=== PATIENT | female | born 1940 | race Caucasian/White ===

== ENCOUNTER 2018-01-31 14:08 | Outpatient (CLI) | payer MEDICARE ==
--- NOTE | 2018-01-31 15:45 | RAD ---
TWO VIEW CHEST: 01/31/18 COMPARISON: 11/18/12 CLINICAL INDICATION: COPD. FINDINGS: The cardiac silhouette is enlarged. There is a subtle density overlying the cardiac silhouette at the left lower chest on the frontal view not well depicted on the lateral projection, nonspecific. There is otherwise, no lobar consolidation or discrete pneumothorax identified. Mild thoracic kyphosis see n. IMPRESSION: 1. Enlarged cardiac silhouette. 2. Nonspecific density overlying the left lower chest on the frontal view. This could relate to body wall calcification versus extrinsic artifact. A well defined density is not seen on the lateral projection. POS: [facility]
== END 2018-01-31 14:09 | disposition home or self-care (01) ==
LOC: RAD-FRANK 14:08
PROVIDERS: ATTEND Nurse Practitioner Family
DX: J20.9 Acute bronchitis, unspecified (principal); J44.0 Chronic obstructive pulmonary disease with (acute) lower respiratory infection
CPT/HCPCS: 71046

== ENCOUNTER 2018-10-07 08:06 | Inpatient (IN) | payer MEDICARE ==
[2018-10-07] MEDS ORDERED: Famotidine/PF 20 mg/2ml Vial ONE (08:20)
[2018-10-07 09:08] LABS: #Eosinphils 0.1 thou/uL (0.0-0.7); #Lymphocytes 1.4 thou/uL (1.20-3.40); #Monocytes 0.2 thou/uL (0.11-0.59); #Neutrophils 6.8 thou/uL (1.40-6.50); %Basophils 0.4 % (0.0-1.0); %Eosinophils 0.8 % (0.0-10.0); %Lymphocytes 16.6 % (21.0-51.0); %Monocytes 2.1 % (0.0-10.0); %Neutrophils 80.2 % (42.0-75.0); Hemoglobin 14.3 g/dL (12.0-16.0); Mean Corpuscular HGB CONC 33.1 g/dL (32.0-36.0); Mean Corpuscular Hemoglobin 32.6 pg (27.0-31.0); Mean Corpuscular Volume 98.4 fL (78.0-98.0); Mean Platelet Volume 7.2 fL (7.4-10.4); Platelet Count 334 thou/uL (130-400); RBC Distribution Width 11.7 % (11.5-14.5); Red Blood Cell (RBC) Count 4.38 mill/uL (4.20-5.40); White Blood Cell (WBC) Count 8.5 thou/uL (4.8-10.8)
[2018-10-07 09:43] LABS: ALT (SGPT) 12 U/L (8-55); AST (SGOT) 20 U/L (5-34); Albumin 3.9 g/dL (3.4-4.8); Alkaline Phosphatase 64 U/L (40-150); Anion Gap 15 mmol/L (10-20); BUN (Urea Nitrogen) 16 mg/dL (9.8-20.1); Bilirubin, Total 0.7 mg/dL (0.2-1.2); Calc. Creatinine Clearance 0 mL/min (70-130); Calcium 9.6 mg/dL (7.8-10.44); Carbon Dioxide 22 mmol/L (23-31); Chloride 104 mmol/L (98-107); Estimated GFR-MDRD 57; Globulin 3.1 g/dL (2.4-3.5); Glucose 154 mg/dL (83-110); Potassium 3.8 mmol/L (3.5-5.1); Sodium 137 mmol/L (136-145)
[2018-10-07] MEDS ORDERED: hydrALAZINE 20 MG/ML VIAL SLOW IVP PRN (09:57)
[2018-10-07] MEDS ORDERED: Acetaminophen 325 MG TAB PO PRN (09:57)
[2018-10-07] MEDS ORDERED: Senokot S 8.6-50 MG TAB PO PRN (09:57)
[2018-10-07] MEDS ORDERED: Acetaminophen 650 MG Suppository PR PRN (09:57)
[2018-10-07] MEDS ORDERED: Bisacodyl 5 MG TAB PO PRN (09:57)
[2018-10-07] MEDS ORDERED: Nitroglycerin 0.4 MG TAB (25 Tab Bottle) SL PRN (09:57)
[2018-10-07] MEDS ORDERED: Bisacodyl 10 MG SUPP PR PRN (09:57)
[2018-10-07] MEDS ORDERED: Ondansetron PF 4 MG/2 ML Vial IVP PRN (09:57)
[2018-10-07 11:14] VITALS: BMI 36.9
[2018-10-07] MEDS: diphenhydrAMINE 12.5 MG in Sodium Chloride 0.9% 50 ML IVPB SCH ×2 (11:25→22:01)
[2018-10-07] MEDS: Sodium Chloride 0.9% 1,000 ML IV SCH (11:25)
[2018-10-07] MEDS ORDERED: traMADol HCl 50 MG TAB PO PRN (11:27)
[2018-10-07] MEDS: methylPREDNISolone Sod Succ/PF 125 MG/2 ML VIAL IVP SCH ×2 (11:45→18:04)
--- NOTE | 2018-10-07 11:53 | HP ---
DATE OF SERVICE: 10/07/2018 PRIMARY CARE PHYSICIAN: Keyana Deutsch M.D. CHIEF COMPLAINT: Swelling of the tongue and throat. HISTORY OF PRESENT ILLNESS: Ms. Vargas is a very pleasant 78-year-old female with past medical hist ory of hypertension and hypothyroidism, who presented to the ER with the above-mentioned complaint. History is mainly obtained by the patient herself and case has been discussed with admitting ER physi chaiDr. Acevedo. According to Ms. Vargas, she has had similar episodes multiple times in the past. She recalls one e pisode happening at early age in her 20s. Since then she has not had much episodes, but starting fro may of this year, she has been having these recurrent episodes where her tongue would swallow. No rmally they are self-limiting and mild, which involves only the side of the tongue. She treats herse lf with Benadryl at home and the symptoms go away. She does note that most of these symptoms happen in the middle of night or equal opportunity counselor while she is asleep. She has been to multiple licensed psychologist manager at [place] [phone] or and reports all of the allergy testing in the past has been negative, so she stopped go ing. She does have history of what sounds like COPD from secondary smoke exposure and follows up aydin Green at the pulmonary clinic in [facility]. Yesterday, she had a similar episode around 4:00 in this morning. She woke up short of breath and sw elling of the tongue. However, this time her symptoms were rather severe and her whole tongue swelle d up and she felt that the swelling was going down her throat inside and outside. Neither of her epi sodes are associated with any urticaria or rash. During one of the episodes few weeks ago, she went to an urgent care clinic and was treated with a Medrol Dosepak. She denies any shortness of breath o r fever. She did notice that she was having some stridor. The patient has changed her detergent and her deodorant but she continues to have these symptoms. 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 Upon presentation to the ER, she was saturating 98% on room air and was completely hemodynamically st able. She was found to have some edematous tongue, but ER physician was able to see the soft palate. There was no documented stridor or shortness of breath or dyspnea on examination. She has received epinephrine, Solu-Medrol as well as Benadryl en route and received IV Pepcid in the ER as well. For closer observation, she is now being admitted to [facility]. Notably, FFP has also been ordered for her w hich she has not yet received. PAST MEDICAL HISTORY: 1. History of atrial fibrillation. 2. Dyslipidemia. 3. Hypertension. 4. Chronic obstructive pulmonary disease. 5. Hypothyroidism. PAST SURGICAL HISTORY: 1. Right shoulder surgery. 2. Right knee surgery. 3. Hysterectomy. ALLERGIES: CEPHALOSPORINS AND PENICILLIN AND SULFONAMIDES. HOME MEDICATIONS: Sotalol 40 mg p.o. b.i.d., Combivent 1 puff inhalation q.i.d., tramadol 50 mg p.o. q.8 hours p.r.n., levothyroxine 50 mcg daily, and triamterene/hydrochlorothiazide 37.5/25 half table t daily. PSYCHIATRIC HISTORY: No anxiety, no depression. SOCIAL HISTORY: She lives at home with the family and is independent with her ADLs and IADLs. She h as no history of tobacco abuse, but has been exposed to secondhand smoke all throughout her life. CODE STATUS: FULL CODE, discussed with the patient. FAMILY HISTORY: No family history of angioedema or any allergic reactions in the family that she can recall off. Her mother has had some mini strokes as well as diabetes. No family history of prematu re coronary artery disease. REVIEW OF SYSTEMS: A 12-point review of systems was done. It is negative except for those mentioned in the history and physical. LABORATORY DATA: CBC is unremarkable except for some neutrophilia at 80%. Her eosinophils are zach l. Serum chemistry shows bicarbonate of 22, blood sugar 154, otherwise unremarkable. I have sent a complement C4 level, which is 31 and it is within the normal range. No chest x-ray was done in the E R. Twelve lead EKG by my review shows no acute ST or T-wave changes and normal sinus rhythm. PHYSICAL EXAMINATION: VITAL SIGNS: Temperature 98.2, pulse of 71, respirations 16, saturating 98% on room air. GENERAL: No acute distress, awake, alert, and oriented x3, very pleasant. There is no stridor heard , no wheezing heard, or no shortness of breath or dyspnea noticed. HEENT: She has minimal swelling of her tongue, but I am able to evaluate her posterior pharynx witho ut difficulty. No erythema or swelling is noticed in the posterior pharynx or soft palate. Head is normocephalic, atraumatic. Pupils equal, reactive to light and accommodation. Extraocular movement intact. NECK: Supple without any lymphadenopathy, JVD, or bruit. CHEST: Clear to auscultation without any wheezing, rales or rhonchi. CARDIOVASCULAR: Rhythm is regular without any murmur, rubs, or gallops. ABDOMEN: Soft, nontender, nondistended, positive bowel sounds. EXTREMITIES: Free of any cyanosis, clubbing, or edema. NEUROLOGIC: Nonfocal. SKIN: Free of any rashes or bruises. I feel warm and dry to touch. PSYCHIATRIC: Normal affect. IMPRESSION AND PLAN: 1. 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 The patient is not on any REGINALD inhibitor, ARBs, or NSAIDs. There is no family history to suggest hereditary angioedema due to C1 esterase inhibitor deficiency . Her complement levels have been normal. We will stop the fresh frozen plasma as it is clearly not indicated at this time. The patient is hemodynamically stable without any airway compromise. We wi ll treat her with IV H1 and H2 blockers as well as Solu-Medrol. Her symptoms have largely resolved. She will be admitted for close observation in [facility], but I think she can be transitioned to [facility] quickly. I have encouraged her to return back to a new licensed psychologist manager and eliminate other sources of allergens from the house. We will start her diet as tolerated and keep her on gentle IV fluids until she is able to take a norm al diet. We will add nebulizers as needed if she develops wheezing. 2. History of hypertension. We will restart her home medications. 3. History of atrial fibrillation. Continue sotalol for now. The patient is in sinus rhythm, which is rate controlled. 4. History of hypothyroidism. We will restart her levothyroxine. 5. Hypertension. Restart triamterene and hydrochlorothiazide for now. 6. Code status: FULL CODE, discussed with the patient. DISPOSITION: Ms. Vargas is currently being admitted to the hospital for angioedema. Estimated lindsay th of stay is at least 2-3 midnight. Further management will depend upon her clinical course.
[2018-10-07] MEDS: Sotalol HCl 80 MG TAB PO SCH (20:49)
[2018-10-07] MEDS: Famotidine/PF 20 mg/2ml Vial SLOW IVP SCH (20:50)
[2018-10-08] MEDS: methylPREDNISolone Sod Succ/PF 125 MG/2 ML VIAL IVP SCH ×2 (00:32→06:35)
[2018-10-08] MEDS: Sodium Chloride 0.9% 1,000 ML IV SCH ×2 (03:39→14:17)
[2018-10-08 04:42] LABS: #Lymphocytes 1.4 thou/uL (1.20-3.40); #Monocytes 0.2 thou/uL (0.11-0.59); #Neutrophils 6.7 thou/uL (1.40-6.50); %Basophils 0.3 % (0.0-1.0); %Eosinophils 0.3 % (0.0-10.0); %Lymphocytes 17.3 % (21.0-51.0); %Neutrophils 80.2 % (42.0-75.0); Hemoglobin 12.6 g/dL (12.0-16.0); Mean Corpuscular HGB CONC 33.2 g/dL (32.0-36.0); Mean Corpuscular Hemoglobin 32.9 pg (27.0-31.0); Mean Corpuscular Volume 98.9 fL (78.0-98.0); Mean Platelet Volume 7.3 fL (7.4-10.4); Platelet Count 315 thou/uL (130-400); RBC Distribution Width 11.4 % (11.5-14.5); Red Blood Cell (RBC) Count 3.84 mill/uL (4.20-5.40); White Blood Cell (WBC) Count 8.4 thou/uL (4.8-10.8)
[2018-10-08 05:04] LABS: Anion Gap 14 mmol/L (10-20); BUN (Urea Nitrogen) 17 mg/dL (9.8-20.1); Calc. Creatinine Clearance 89 mL/min (70-130); Calcium 9.5 mg/dL (7.8-10.44); Carbon Dioxide 23 mmol/L (23-31); Chloride 105 mmol/L (98-107); Estimated GFR-MDRD 69; Glucose 161 mg/dL (83-110); Potassium 3.5 mmol/L (3.5-5.1); Sodium 138 mmol/L (136-145)
[2018-10-08] MEDS ORDERED: Levothyroxine Sodium 50 MCG TAB PO SCH (06:00)
[2018-10-08] MEDS: Famotidine/PF 20 mg/2ml Vial SLOW IVP SCH (08:26)
[2018-10-08] MEDS: Sotalol HCl 80 MG TAB PO SCH (08:26)
[2018-10-08] MEDS: diphenhydrAMINE 12.5 MG in Sodium Chloride 0.9% 50 ML IVPB SCH (08:27)
[2018-10-08] MEDS ORDERED: Triamterene/Hydrochlorothiazide 37.5 mg/25 mg Tablet PO SCH (09:00)
[2018-10-08] MEDS ORDERED: Enoxaparin Sodium 40 MG/0.4 ML SYRINGE SC SCH (09:00)
[2018-10-08] MEDS ORDERED: predniSONE 20 MG TAB PO SCH (09:15)
[2018-10-08 11:17] VITALS: BP 136/101; TEMP 97.9
--- NOTE | 2018-10-08 16:45 | DIS ---
DATE OF ADMISSION: 10/07/2018 DATE OF DISCHARGE: 10/08/2018 DISCHARGE DISPOSITION: Home. CONDITION AT THE TIME OF DISCHARGE: Stable and improved. PRIMARY CARE PHYSICIAN: Keyana Deutsch M.D. PRIMARY OPHTHALMIC LENS INSPECTOR: Dillan Palacios M.D. DISCHARGE DIAGNOSES: 1. Angioedema, likely allergic in nature. 2. History of paroxysmal atrial fibrillation. 3. History of pulmonary arterial hypertension. 4. Hypertension. 5. Chronic obstructive pulmonary disease. 6. Dyslipidemia. 7. Hypothyroidism. DISCHARGE MEDICATIONS: RESUME HOME MEDICATIONS: As follows, sotalol 40 mg p.o. b.i.d., Combivent inhaler as needed, triamte kaila-hydrochlorothiazide half tablet daily and aspirin 81 mg daily. NEW MEDICATIONS: Medrol Dosepak as directed, Benadryl 25 mg p.o. q.6 hours if her tongue starts to s well again as needed and Pepcid 20 mg p.o. b.i.d. for 5 more days. The patient is encouraged to discuss the aspirin with her mannequin wig maker. With her history of paroxysm al atrial fibrillation, she may or may not be a candidate for other form of anticoagulation. The asp irin might be the reason for recurrent angioedema. PROCEDURES DONE IN THE HOSPITAL: None. CONSULTATION: None. HISTORY OF PRESENTING ILLNESS: Ms. Vargas is a very pleasant 78-year-old female with past medical h istory of multiple episodes of swelling of her tongue and throat in the past because of unknown aller gic agents, came to the emergency room with the similar complaints again. She was found to have some swelling of the tongue and of the throat with some stridor per the EMS and received epinephrine nehemias g with Solu-Medrol, Pepcid IV as well as IV Benadryl, and was admitted to [facility] for close observation. By the time of admission, she was almost back to her baseline with only some residual tongue swelli ng. She had no respiratory or airway compromise at the time of my evaluation. Please see admission history and physical for further details. HOSPITAL COURSE: The patient was monitored overnight in [facility] and her symptoms improved. She was wiliam ated with IV Solu-Medrol, IV Pepcid and Benadryl while in the hospital. As of this morning, her tong ue is back to her baseline and her symptoms have resolved. She does have some cough for which she is encouraged to take the Combivent. Compliment C4 levels were sent to check if she has a C1 esterase inhibitor deficiency, but they came back normal. She might be having allergic reaction to the aspirin. She also has history of other al lergies as well as asthma. She has seen by multiple allergies in the past, but no specific allergen could have been found. I have encouraged her to go back to a new biology manager because of recurrent and now worsening episodes of angioedema because of unclear allergen. Right now, she is stable and will be discharged back. She did have one episode of paroxysmal atrial fibrillation with RVR in the hospital which was easily aborted by one dose of IV Cardizem and she has maintained in sinus rhythm since then. I think this h appened because she missed the dose of the sotalol and was on high dose IV steroids as well as was gi iliana epinephrine. She is now on oral steroids and will continue the same. She is encouraged to follo w up with Dr. Palacios in the next 1 to 2 weeks. She recently has had an echocardiogram done 1 week ago and is not desirous to get another one especially as the mannequin wig maker is out of hospital, in the facility. PHYSICAL EXAMINATION: She was seen and examined prior to discharge. VITAL SIGNS: Temperature 98, pulse of 71, respirations 18, saturating 95% on room air, blood pressur e 128/74. GENERAL: No acute distress, awake, alert, oriented x3. HEENT: Mucous membrane is moist. No oropharyngeal exudate or erythema. There is no swelling of the tongue left. The soft palate is easily seen. Oropharynx is without any swelling or erythema. No s tridor or wheezing is noted. CHEST: Clear to auscultation. HEENT: Rate and rhythm is regular. LABORATORY EXAMINATION: Complement C4 level is 31.60 within normal range being 15 to 57. DISCHARGE INSTRUCTIONS: She will follow up with primary care physician in 1-2 weeks as well. Discha rge plan was discussed with the patient who verbalized understanding. Total time spent in the discharge of this patient was 31 minutes.
== END 2018-10-08 14:35 | disposition home or self-care (01) | DRG 916 ==
LOC: ERS 08:06 → IMCU/EMU 10:15
PROVIDERS: ADMIT Internal Medicine; ATTEND Internal Medicine
DX: T78.3XXA Angioneurotic edema, initial encounter (principal); I48.0 Paroxysmal atrial fibrillation; Z79.01 Long term (current) use of anticoagulants; I27.21 Secondary pulmonary arterial hypertension; I10 Essential (primary) hypertension; E78.5 Hyperlipidemia, unspecified; J44.9 Chronic obstructive pulmonary disease, unspecified; E03.9 Hypothyroidism, unspecified
CPT/HCPCS: 36415; 80048; 80053; 85025; 86160; 86850; 86900; 86901; 93005; 94640; 96374; J1200; J1650; J2930; J3490; J7050; J7506; J7620; S0028

== ENCOUNTER 2020-10-19 10:04 | Outpatient (CLI) | payer MEDICARE, OTHER ==
--- NOTE | 2020-10-19 11:57 | MRI ---
MRI LUMBAR SPINE NONCONTRAST: HISTORY: Spinal stenosis in the lumbar region. Low back pain, radiating to right leg. COMPARISON: 11/26/2008. FINDINGS: There are type I Modic changes at T11-T12 and T12-L1. Vertebral body height is maintained. No fractur e. No significant STIR hyperintensity to suggest ligamentous injury. Spondylolisthesis: T12-L1: 2.6 mm of retrolisthesis. L1-L2: 2.3 mm of retrolisthesis. Appropriate signal intensity of the visualized paraspinal muscles and solid organs. Conus medullaris terminates at the mid L1 level. T12-L1:Disc desiccation with mild loss of disc space height. Broad-based disc bulge. Mild central can al stenosis. Moderate to severe bilateral neural foraminal narrowing. L1-L2:Disc desiccation with moderate loss of disc space height. Broad-based disc bulge, ligament flav um thickening and facet hypertrophy. Mild central canal stenosis. Moderate bilateral neural foraminal narrowing. L2-L3:Disc desiccation with mild loss of disc space height. Broad-based disc bulge, ligament flavum t hickening and facet hypertrophy. Moderate central canal stenosis. Mild to moderate bilateral neural foraminal narrowing. L3-L4:Disc desiccation with moderate loss of disc space height. Broad-based disc bulge, ligament flav um thickening and facet hypertrophy. Moderate central canal stenosis. Mild to moderate bilateral neural foraminal narrowing. L4-L5:Disc desiccation with severe loss of disc space height. Broad-based disc bulge with a central/l eft subarticular disc herniation. Obscuration of the traversing left L5 nerve root. Moderate bilateral neural foraminal narrowing. L5-S1:Disc desiccation with mild loss of disc space height. No significant posterior disc abnormality . No significant central canal stenosis. There is moderate severe bilateral facet hypertrophy. Mild bilateral neural foraminal narrowing. IMPRESSION: Multilevel degenerative changes of the lumbar spine as described above. Transcribed Date/Time: 10/19/2020 1:32 PM
--- NOTE | 2020-10-19 12:00 | RAD ---
LUMBAR SPINE SERIES 3 VIEWS: Date: 10/19/2020 HISTORY: Back pain, neurogenic claudication. FINDINGS: There are marked arthritic changes of the spine and moderate levoscoliosis. Severe degenerative ruggiero es are most pronounced at the T12-L1, L1-2, and L2-3 levels. There is also marked disc narrowing at L4-5. Moderate disc narrowing at L3-4 and L5-S1 levels. I do not appreciate abnormal motion on the fl exion or extension views. IMPRESSION: Scoliosis and severe arthritic changes of the spine. POS: [facility]
== END 2020-10-19 10:05 | disposition home or self-care (01) ==
LOC: BICMRI 10:04
PROVIDERS: ATTEND Nurse Practitioner Family
DX: M48.062 Spinal stenosis, lumbar region with neurogenic claudication (principal); M41.9 Scoliosis, unspecified; M46.96 Unspecified inflammatory spondylopathy, lumbar region; M47.816 Spondylosis without myelopathy or radiculopathy, lumbar region
CPT/HCPCS: 72110; 72148